=== PATIENT | male | born 1950 | race Caucasian/White ===

== ENCOUNTER → 2023-01-15 14:30 | Outpatient (CLI) | payer OTHER, SELFPAY ==
--- NOTE | 2023-01-15 | DI.CT.S_ITS ---
PROCEDURE: CT UE RT WO CON INDICATIONS: Primary osteoarthritis, right shoulder TECHNIQUE: Noncontrast 1-1.5 mm thick sections acquired from the acromioclavicular joint to the inferior scapula, with coronal and sagittal reformatting. COMPARISON: None. FINDINGS: Image quality: Excellent. Bones: [id number] acromioclavicular joint osteoarthritic changes are seen with joint space narrowing, subchondral sclerosis and small downward osteophyte formation depressing the musculotendinous junction of supraspinatus. Moderate glenohumeral joint osteoarthritic changes are noted with joint space narrowing, subchondral sclerosis and prominent inferior marginal osteophyte formation. There is no acute shoulder fracture or dislocation. No suspicious bony lesions. Visualized right ribs are grossly intact. Soft tissues: There is no full-thickness rotator cuff tendon rupture. No significant rotator cuff muscle atrophy is seen on sagittal images. No abnormal soft tissue calcifications. There is no significant joint effusion or subacromial subdeltoid bursal fluid. No calcified loose bodies. Visualized right lung field is clear. No axillary lymphadenopathy by size criteria. IMPRESSION: 1. [id number] acromioclavicular joint osteoarthritis and moderate glenohumeral joint osteoarthritis. No acute right shoulder fracture or dislocation. No suspicious bony lesions. 2. No full-thickness rotator cuff tendon rupture. No significant rotator cuff muscle atrophy. No abnormal soft tissue calcifications. Dictated by: Brennan Sharp M.D. on 01/15/2023 at 16:32 Approved by: Brennan Sharp M.D. on 01/15/2023 at 17:23
== END ==
PROVIDERS: Referring Provider Orthopaedic Surgery; Visit Provider Orthopaedic Surgery
DX: M19.011 Primary osteoarthritis, right shoulder (principal)
CPT/HCPCS: 73200

== ENCOUNTER 2023-03-22 06:12 | Day surgery (SDC) | payer OTHER, SELFPAY ==
[2023-03-14 12:51] VITALS: BMI 27.9
[2023-03-22] MEDS: LACTATED RINGERS 1,000 ML 42 ML IV ×2 (06:52→10:21)
[2023-03-22] MEDS: ACETAMINOPHEN 325 MG TABLET 975 MG PO (06:52)
[2023-03-22] MEDS: CELECOXIB 200 MG CAPSULE PO (06:53)
[2023-03-22] MEDS: VANCOMYCIN 1,000 MG/200 ML PIGGYBACK 200 MG IV (06:53)
[2023-03-22 07:08] VITALS: BP 145/90; PULSE 78; RESP 16; TEMP 36.3; O2SAT 97; BMI 27.9
--- NOTE | 2023-03-22 07:25 | PM.PREOP ---
Pre-operative Note Interval Note History & Physical reviewed/Exam performed by Physician: Yes Changes to H&P: No
[2023-03-22 07:45] VITALS: BP 137/82; PULSE 67; RESP 16; O2SAT 96
--- NOTE | 2023-03-22 07:50 | SUR.PREOP ---
Block start time [0741] . Monitoring initiated and maintained throughout procedure. Oxygen and medications given per anesthesiologist instructions. Patient remained stable throughout procedure, no adverse reactions noted. Block end time [0750].
[2023-03-22] MEDS: TRANEXAMIC ACID 1,000 MG VIAL 1000 MG INJ ×2 (08:00→09:30)
--- NOTE | 2023-03-22 08:00 | DI.RAD.S_ITS ---
PROCEDURE: XR SHOULDER RT MIN 2V INDICATIONS: TSA TECHNIQUE: 2 views of the shoulder were acquired. COMPARISON: None. FINDINGS: Bones: No definite acute fractures or dislocations. No suspicious bony lesions. Visualized ribs appear intact. Postsurgical changes of right total shoulder arthroplasty. Soft tissues: No suspicious soft tissue calcifications. IMPRESSION: Right total shoulder arthroplasty. No evidence for acute hardware complication. Dictated by: Eddie Jang M.D. on 03/22/2023 at 11:26 Approved by: Eddie Jang M.D. on 03/22/2023 at 11:27
[2023-03-22] MEDS: GENTAMICIN 200 MG in SODIUM CHLORIDE 0.9% 100 ML 105 MG IV (08:14)
[2023-03-22] MEDS: LIDOCAINE 1% W/EPI 20 ML INJ (08:19)
--- NOTE | 2023-03-22 08:24 | SUR.OPER ---
Beach chair on padded OR bed. Head on padded head rest. Non-operative arm secured on pillow, padded, and taped. Pillow under knees. Safety belt at thigh. Cloth tape over blanket over lower legs.
--- NOTE | 2023-03-22 09:50 | P.OP_ITS ---
Operative Date/Time/Diagnoses Date of procedure: 03/22/23 Time of procedure: 08:00 Pre-op diagnosis: Right shoulder glenohumeral joint arthritis Post-op diagnosis: same Procedure & Clinicians Procedure: Right total shoulder arthroplasty Same procedure as scheduled: Yes Indications: End-stage arthritis to the right shoulder joint Surgeon: Renny Hernandez Apprentice Plant Attendant: Gloria Francis Anesthesia Type: General and Peripheral nerve block Operative Notes Findings: End-stage arthritis to the glenohumeral joint. No sign of any rotator cuff tears. Large osteophytes as well as full-thickness cartilage loss. Closure Type: primary Applied: other (Large glenoid with a 47 18 head large cage screw) Estimated Blood Loss (mL): 100 Procedure in detail: On date of service, Patient was met in the holding area. The operative site was signed and witnessed by the OR staff. The surgeries once again discussed with the patient and any remaining questions they had were answered fully. Patient was taken back to the operating theater and placed on the operating table in a supine position. Great care was taken to ensure that all bony prominences were properly padded. Patient was then placed into the beach chair position. The head and neck were properly positioned and secured. A timeout was performed verifying patient's name, procedure, and the operative site. The upper extremity was then prepped and draped in the normal sterile fashion. Previously, the bony anatomy and incision were marked out as well as injected with Marcaine with epinephrine. A deltopectoral approach was performed. 10 blade was used to incise the skin and fascial tissue. A deep knife was used to continue sharp dissection until the cephalic vein was visualized. The cephalic vein was dissected free allowing us to expose the deltopectoral interval. This interval was then developed. A Marvin elevator was used to free up the deltoid of any scarring both superficially as well as deeply. The vein and the deltoid were taken laterally while the pectoralis was taken medially. This gave us good visualization of the strap muscles. The clavipectoral fascia was removed and the strap muscles were then retracted medially with the pectoralis. This gave us stabilization of the subscapularis. The circumflex vessels were ligated and the subscapularis was sharply excised off the lesser tuberosity and then tagged. Once the subscapularis was released we're able to dislocate the shoulder. Patient had end-stage arthritic changes to the humeral head as well as the glenoid with large osteophytes anterior inferiorly as well as posteriorly. A Ronger was then used to remove the osteophytes. See findings above for descriptions of the humeral head and glenoid. Next, cutting guide was placed and a saw was used to remove the humeral head. Once the head was removed it was templated. A 47 gave us the best coverage. The osteotomy site was prepared for the eventual stem LEs head. Protector placed for the osteotomy was then placed and and we turned our attention back to the subscapularis as well as the glenoid. The subscapularis was freed up and a 360? fashion. The degenerative anterior and inferior capsular tissue was removed. This was followed by removing the degenerative labral tissue from around the glenoid as well as the biceps insertion. Retractors were used to protect the axillary nerve while we remove the degenerative capsular and labral tissue. This gave us good visualization of the glenoid. Glenoid trials were used until we found the appropriate fit and curvature. A large glenoid provided the best fit. The center hole was drilled followed by reaming of the glenoid. The wound was copiously irrigated after reaming. Next the pegs were drilled and a trial glenoid was impacted into place. Once we were satisfied with the preparation of the glenoid, the final component was cemented into place. This was followed by impaction. We Return to our attention back to the humerus. The protector plate was removed and heads were trialed once again until we found the appropriate fit. The base plate was placed followed by a large cage screw. Heads were trialed and the 47 x 18 gave the best overall fit. Final implant was impacted into place and the shoulder was taken range motion. #2 FiberWire were passed through the bone tunnels for eventual subscapularis repair. It was taken through range of motion and was felt to be stable in both posterior translation as well as e xternal and internal rotation with abduction. The subscapularis was repaired back to the lesser tuberosity through the bone tunnels. This was then reinforced with soft tissue repair. Part of the rotator interval was then closed. A drain was placed and the rest of the wound was closed in a layered fashion. The shoulder was then cleaned dried and dressed and the patient was taken to the PACU in stable condition. Patient will follow our postoperative protocol for total shoulder arthroplasty. Complications: none Post-operative Condition: stable Disposition: same day surgery Plan for aftercare: Patient will follow our postoperative protocol for total shoulder arthroplasty
[2023-03-22 09:59] VITALS: BP 121/81; PULSE 77; RESP 18; TEMP 36.1; O2SAT 93
[2023-03-22 10:10] VITALS: BP 128/78; PULSE 75; RESP 14; O2SAT 93
[2023-03-22] MEDS: OXYCODONE IR 5 MG TABLET PO ×2 (10:15→10:35)
[2023-03-22 10:24] VITALS: BP 132/87; PULSE 76; RESP 16; TEMP 36.1; O2SAT 95
[2023-03-22] MEDS: ONDANSETRON 4 MG/2 ML INJ IV (10:36)
== END 2023-03-22 11:37 | disposition home or self-care (01) ==
LOC: OR 06:13 → AC 06:14
PROVIDERS: PCP Family Medicine; Referring Provider Orthopaedic Surgery; Visit Provider Orthopaedic Surgery
PROC: 0RQJ0ZZ Repair Right Shoulder Joint, Open Approach (ICD-10-PCS; CPT 23472; principal; 2023-03-22 07:45)
DX: M19.011 Primary osteoarthritis, right shoulder (principal); G89.18 Other acute postprocedural pain
CPT/HCPCS: 23472; 64450; 73030; C1776; J1100; J1885; J2405; J2704; J3010